=== PATIENT | male | born 1970 | race Caucasian/White ===

== ENCOUNTER → 2016-09-08 | Outpatient (CLI) | payer BC ==
[2016-09-08 10:46] LABS: CH 29.1; CHCM 35.7; HCT 48.6 % (39.0-53.0); HDW 2.83; HGB 16.6 gm/dL (13.0-17.5); MCHC 34.2 g/dL (31.0-37.0); MCV 81.9 fL (80.0-100.0); Mean Platelet Volume 8.1; RBC 5.94 m/uL (4.30-5.90); RDW 12.8 % (11.5-15.5)
[2016-09-08 11:02] LABS: ALT 32 U/L (21-72); AST 23 U/L (17-59); Alkaline Phosphatase 85 U/L (38-126); Anion Gap 11 mmol/L; Blood Urea Nitrogen 11 mg/dL (9-20); Calcium 9.3 mg/dL (8.4-10.2); Carbon Dioxide 29 mmol/L (22-30); Chloride 102 mmol/L (98-107); Cholesterol 170 mg/dL (<200); Glucose 184 mg/dL (74-99); HDL Cholesterol 37 mg/dL (40-60); Non-African American GFR(MDRD) >60 (>60 ml/min/1.73 sqM); Potassium 4.5 mmol/L (3.5-5.1); Sodium 142 mmol/L (137-145); Total Bilirubin 0.9 mg/dL (0.2-1.3); Total Protein 7.5 g/dL (6.3-8.2); Triglycerides 59 mg/dL (<150)
[2016-09-08 11:13] LABS: Hemoglobin A1C 8.2 % (4.2-6.1)
--- NOTE | 2016-09-08 11:13 | XR ---
EXAMINATION TYPE: XR chest 2V DATE OF EXAM: 09/08/2016 11:03 AM HISTORY: Wellness checkup. REFERENCE: Previous study dated 03/30/2014. FINDINGS: There is minimal scarring IMPRESSION: MINIMAL SCARRING, LEFT LUNG BASE.
== END | disposition home or self-care (01) ==
LOC: LABWHC1 10:06
PROVIDERS: ATTEND Internal Medicine
DX: Z00.00 Encounter for general adult medical examination without abnormal findings (principal); E11.9 Type 2 diabetes mellitus without complications; I11.9 Hypertensive heart disease without heart failure; E78.2 Mixed hyperlipidemia; K21.0 Gastro-esophageal reflux disease with esophagitis
CPT/HCPCS: 36415; 71020; 80053; 80061; 82043; 82272; 83036; 84439; 84443; 85027

== ENCOUNTER → 2016-11-16 | Outpatient (CLI) | payer BC ==
[2016-11-16 11:04] LABS: Hemoglobin A1C 8.3 % (4.2-6.1)
== END | disposition home or self-care (01) ==
LOC: LABWHC1 10:10
PROVIDERS: ATTEND Internal Medicine
DX: E11.9 Type 2 diabetes mellitus without complications (principal)
CPT/HCPCS: 36415; 82947; 83036

== ENCOUNTER 2017-06-16 13:07 | Emergency (ER) | payer BC ==
[2017-06-16 13:19] VITALS: TEMP 98.1
[2017-06-16] MEDS ORDERED: SODIUM CHLORIDE 0.9% 1,000 ML IV STA (13:32)
[2017-06-16] MEDS ORDERED: ONDANSETRON 4 MG/2 ML VIAL IVP STA (13:32)
--- NOTE | 2017-06-16 13:49 | ED ---
Abdominal Pain HPI - General Chief Complaint: Abdominal Pain Stated Complaint: Abd Pain Time Seen by Provider: 06/16/17 13:28 Source: patient, RN notes reviewed Mode of arrival: wheelchair Limitations: no limitations - History of Present Illness Initial Comments: 46-year-old male presents emergency Department chief complaint of abdominal discomfort, nausea vomiting. Patient states that symptoms started yesterday states she just generalized not feeling well had some body aches. Patient states he's been vomiting all night to today. Patient denies any contacts with some symptoms. Patient does admit to some loose stools and diarrhea. Patient denies any melena or hematochezia. Denies fever, chills, headache or dizziness. He states he did feel lightheaded earlier with the vomiting states that has resolved. Patient denies any prior abdominal surgeries. Patient states he is diabetic and takes metformin and glipizide. - Related Data Home Medications Medication Instructions Recorded Confirmed metFORMIN HCL [Glucophage] 500 mg PO BID 03/31/14 06/16/17 glipiZIDE [Glucotrol] 5 mg PO AC-BRKFST 06/16/17 06/16/17 Previous Rx's Medication Instructions Recorded Dicyclomine [Bentyl] 20 mg PO TID #30 tablet 06/16/17 Ondansetron Odt [Zofran Odt] 4 mg PO Q8HR PRN #10 tab 06/16/17 Allergies Allergy/AdvReac Type Severity Reaction Status Date / Time No Known Allergies Allergy Verified 06/16/17 13:51 Review of Systems ROS Statement: Those systems with pertinent positive or pertinent negative responses have been documented in the HPI. ROS Other: All systems not noted in ROS Statement are negative. Past Medical History Past Medical History: Diabetes Mellitus History of Any Multi-Drug Resistant Organisms: None Reported Past Surgical History: Orthopedic Surgery Additional Past Surgical History / Comment(s): BILATERAL KNEE, LEFT ROTATOR CUFF , RIGHT ARM Past Anesthesia/Blood Transfusion Reactions: No Reported Reaction Past Psychological History: Depression Smoking Status: Never smoker Past Alcohol Use History: None Reported Past Drug Use History: None Reported - Past Family History Father Family Medical History: Deep Vein Thrombosis (DVT) General Exam Limitations: no limitations General appearance: alert, in no apparent distress Head exam: Present: atraumatic, normocephalic, normal inspection Eye exam: Present: normal appearance, PERRL, EOMI. Absent: scleral icterus, conjunctival injection, periorbital swelling ENT exam: Present: normal exam, mucous membranes moist, TM's normal bilaterally , normal external ear exam. Absent: normal oropharynx (No upper dentition) Neck exam: Present: normal inspection, full ROM. Absent: tenderness, meningismus, lymphadenopathy Respiratory exam: Present: normal lung sounds bilaterally. Absent: respiratory distress, wheezes, rales, rhonchi, stridor Cardiovascular Exam: Present: normal rhythm, tachycardia, normal heart sounds. Absent: systolic murmur, diastolic murmur, rubs, gallop, clicks GI/Abdominal exam: Present: soft, tenderness (Mild Diffuse upper), normal bowel sounds. Absent: distended, guarding, rebound, rigid Back exam: Absent: CVA tenderness (R), CVA tenderness (L) Skin exam: Present: warm, dry, intact, normal color. Absent: rash Course Vital Signs 06/16/17 13:17 Temperature 98.1 F Pulse Rate 116 H Respiratory 20 Rate Blood Pressure 144/80 O2 Sat by Pulse 98 Oximetry Medical Decision Making - Medical Decision Making 46-year-old male male presents emergency Department chief complaint of nausea vomiting don't discomfort. Patient does feel improved after Zofran antiemetics she does have some mild residual pain. Patient given Toradol. 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 Return parameters were discussed. - Lab Data Result diagrams: 06/16/17 14:04 06/16/17 14:04 Lab Results 06/16/17 06/16/17 06/16/17 Range/Units 14:04 14:04 14:04 WBC 9.5 (3.8-10.6) k/uL RBC 6.37 H (4.30-5.90) m/uL Hgb 17.4 (13.0-17.5) gm/dL Hct 51.5 (39.0-53.0) % MCV 80.8 (80.0-100.0) fL MCH 27.3 (25.0-35.0) pg MCHC 33.8 (31.0-37.0) g/dL RDW 14.5 (11.5-15.5) % Plt Count 217 (150-450) k/uL Neutrophils % 89 % Lymphocytes % 6 % Monocytes % 3 % Eosinophils % 1 % Basophils % 0 % Neutrophils # 8.5 H (1.3-7.7) k/uL Lymphocytes # 0.5 L (1.0-4.8) k/uL Monocytes # 0.3 (0-1.0) k/uL Eosinophils # 0.1 (0-0.7) k/uL Basophils # 0.0 (0-0.2) k/uL Sodium 137 (137-145) mmol/L Potassium 4.3 (3.5-5.1) mmol/L Chloride 102 (98-107) mmol/L Carbon Dioxide 26 (22-30) mmol/L Anion Gap 9 mmol/L BUN 13 (9-20) mg/dL Creatinine 0.89 (0.66-1.25) mg/dL Est GFR (MDRD) Af Amer >60 (>60 ml/min/1.73 sqM) Est GFR (MDRD) Non-Af >60 (>60 ml/min/1.73 sqM) Glucose 234 H (74-99) mg/dL Plasma Lactic Acid [place] 1.1 (0.7-2.0) mmol/L Calcium 9.0 (8.4-10.2) mg/dL Total Bilirubin 0.8 (0.2-1.3) mg/dL AST 23 (17-59) U/L ALT 42 (21-72) U/L Alkaline Phosphatase 82 (38-126) U/L Total Protein 7.3 (6.3-8.2) g/dL Albumin 4.1 (3.5-5.0) g/dL Amylase 59 (30-110) U/L Lipase 186 (23-300) U/L Urine Color Urine Appearance (Clear) Urine pH (5.0-8.0) Ur Specific [place] (1.001-1.035) Urine Protein (Negative) Urine Glucose (UA) (Negative) Urine Ketones (Negative) Urine Blood (Negative) Urine Nitrite (Negative) Urine Bilirubin (Negative) Urine Urobilinogen (<2.0) mg/dL Ur Leukocyte Esterase (Negative) Acetone, Qual Negative (Negative) 06/16/17 Range/Units 14:04 WBC (3.8-10.6) k/uL RBC (4.30-5.90) m/uL Hgb (13.0-17.5) gm/dL Hct (39.0-53.0) % MCV (80.0-100.0) fL MCH (25.0-35.0) pg MCHC (31.0-37.0) g/dL RDW (11.5-15.5) % Plt Count (150-450) k/uL Neutrophils % % Lymphocytes % % Monocytes % % Eosinophils % % Basophils % % Neutrophils # (1.3-7.7) k/uL Lymphocytes # (1.0-4.8) k/uL Monocytes # (0-1.0) k/uL Eosinophils # (0-0.7) k/uL Basophils # (0-0.2) k/uL Sodium (137-145) mmol/L Potassium (3.5-5.1) mmol/L Chloride (98-107) mmol/L Carbon Dioxide (22-30) mmol/L Anion Gap mmol/L BUN (9-20) mg/dL Creatinine (0.66-1.25) mg/dL Est GFR (MDRD) Af Amer (>60 ml/min/1.73 sqM) Est GFR (MDRD) Non-Af (>60 ml/min/1.73 sqM) Glucose (74-99) mg/dL Plasma Lactic Acid [place] (0.7-2.0) mmol/L Calcium (8.4-10.2) mg/dL Total Bilirubin (0.2-1.3) mg/dL AST (17-59) U/L ALT (21-72) U/L Alkaline Phosphatase (38-126) U/L Total Protein (6.3-8.2) g/dL Albumin (3.5-5.0) g/dL Amylase (30-110) U/L Lipase (23-300) U/L Urine Color Yellow Urine Appearance Clear (Clear) Urine pH 7.5 (5.0-8.0) Ur Specific [place] 1.027 (1.001-1.035) Urine Protein Trace H (Negative) Urine Glucose (UA) 4+ H (Negative) Urine Ketones 2+ H (Negative) Urine Blood Negative (Negative) Urine Nitrite Negative (Negative) Urine Bilirubin Negative (Negative) Urine Urobilinogen 3.0 (<2.0) mg/dL Ur Leukocyte Esterase Negative (Negative) Acetone, Qual (Negative) Disposition Clinical Impression: Gastroenteritis Disposition: HOME SELF-CARE Condition: Stable Instructions: Gastroenteritis (ED) Additional Instructions: Please return to the Emergency Department if symptoms worsen or any other concerns. Prescriptions: Dicyclomine [Bentyl] 20 mg PO TID #30 tablet Ondansetron Odt [Zofran Odt] 4 mg PO Q8HR PRN #10 tab PRN Reason: Nausea Referrals: Henry Quijano MD [Primary Care Provider] - 1-2 days Time of Disposition: 15:27
[2017-06-16 14:18] LABS: Appearance,Urine Clear (Clear); Bilirubin,Urine Negative (Negative); Glucose,Urine (UA) 4+ (Negative); Leukocyte Esterase,Urine Negative (Negative); Nitrite,Urine Negative (Negative); PH, Urine 7.5 (5.0-8.0); Protein,Urine Trace (Negative); Specific Gravity,Urine 1.027 (1.001-1.035); UA Billing (MACRO vs. MICRO) CHEM
--- NOTE | 2017-06-16 14:18 | XR ---
EXAMINATION TYPE: XR KUB DATE OF EXAM: 06/16/2017 2:15 PM CLINICAL HISTORY: Left-sided abdominal pain for a few days. TECHNIQUE: Two Upright KUB images of the abdomen are obtained. COMPARISON: None. FINDINGS: There is some paucity of bowel gas. Visualized gas is noted in nondistended small and large bowel loops. A few scattered air-fluid levels are noted in right-sided colonic loops as well as in r ight mid small bowel loops. No pneumoperitoneum or suspicious calcification is seen. Lung bases are c lear. Visualized osseous structures are intact. IMPRESSION: Overall nonspecific bowel gas pattern.
[2017-06-16 14:19] LABS: Basophils % (A) 0 %; CH 27.8; CHCM 34.6; Eosinophils # (A) 0.1 k/uL (0-0.7); Eosinophils % (A) 1 %; HCT 51.5 % (39.0-53.0); HGB 17.4 gm/dL (13.0-17.5); Luc # (Auto) 0.05; Luc % (Auto) 1; Lymphocytes # (A) 0.5 k/uL (1.0-4.8); Lymphocytes % (A) 6 %; MCH 27.3 pg (25.0-35.0); MCHC 33.8 g/dL (31.0-37.0); MCV 80.8 fL (80.0-100.0); Mean Platelet Volume 8.1; Monocytes # (A) 0.3 k/uL (0-1.0); Monocytes % (A) 3 %; Neutrophils # (A) 8.5 k/uL (1.3-7.7); Neutrophils % (A) 89 %; RBC 6.37 m/uL (4.30-5.90); RDW 14.5 % (11.5-15.5); WBC 9.5 k/uL (3.8-10.6); WBC (Perox) 9.99
[2017-06-16 14:35] LABS: Ketones,Urine 2+ (Negative)
[2017-06-16 14:40] LABS: ALT 42 U/L (21-72); AST 23 U/L (17-59); Alkaline Phosphatase 82 U/L (38-126); Amylase 59 U/L (30-110); Anion Gap 9 mmol/L; Blood Urea Nitrogen 13 mg/dL (9-20); Carbon Dioxide 26 mmol/L (22-30); Chloride 102 mmol/L (98-107); Glucose 234 mg/dL (74-99); Non-African American GFR(MDRD) >60 (>60 ml/min/1.73 sqM); Potassium 4.3 mmol/L (3.5-5.1); Sodium 137 mmol/L (137-145); Total Bilirubin 0.8 mg/dL (0.2-1.3); Total Protein 7.3 g/dL (6.3-8.2)
[2017-06-16] MEDS ORDERED: KETOROLAC 30 MG/ML 1 ML VIAL IVP STA (15:26)
[2017-06-16 15:53] VITALS: BP 129/78; PULSE 105; RESP 16
== END 2017-06-16 15:53 | disposition home or self-care (01) ==
LOC: EC 13:07
DX: K52.9 Noninfective gastroenteritis and colitis, unspecified (principal); E11.9 Type 2 diabetes mellitus without complications; Z79.84 Long term (current) use of oral hypoglycemic drugs
CPT/HCPCS: 36415; 80053; 82150; 82009; 83605; 83690; 85025; 81003; 74000; 99284; 96374; 96375; 96361; J2405; J1885

== ENCOUNTER 2018-02-17 21:35 | Emergency (ER) | payer BC ==
[2018-02-17 22:15] VITALS: BP 155/92; PULSE 88; RESP 18; TEMP 97.8
--- NOTE | 2018-02-17 22:58 | ED ---
Wound/Laceration HPI - General Chief Complaint: Wound/Laceration Stated Complaint: Head Injury Lac Time Seen by Provider: 02/17/18 22:28 Source: patient, RN notes reviewed Mode of arrival: ambulatory Limitations: no limitations - History of Present Illness Initial Comments: This is a 47-year-old male who presents to the emergency department with chief complaint of head laceration. Patient states that at 9:30 this evening he was walking down down to his basement. He states that the basement ceiling is low hanging. He states that he turned around and hit the left side of his head on the ceiling. Denies loss of consciousness, nausea or vomiting, dizziness. Does report a mild headache. Patient states he is up-to-date with his tetanus vaccination. Denies any other injuries or trauma. Denies fevers or chills, chest pain or shortness breath, abdominal pain, weakness, numbness or tingling. - Related Data Home Medications Medication Instructions Recorded Confirmed metFORMIN HCL [Glucophage] 500 mg PO BID 03/31/14 06/16/17 glipiZIDE [Glucotrol] 5 mg PO AC-BRKFST 06/16/17 06/16/17 Previous Rx's Medication Instructions Recorded Dicyclomine [Bentyl] 20 mg PO TID #30 tablet 06/16/17 Ondansetron Odt [Zofran Odt] 4 mg PO Q8HR PRN #10 tab 06/16/17 Allergies Allergy/AdvReac Type Severity Reaction Status Date / Time No Known Allergies Allergy Verified 02/17/18 22:15 Review of Systems ROS Statement: Those systems with pertinent positive or pertinent negative responses have been documented in the HPI. ROS Other: All systems not noted in ROS Statement are negative. Past Medical History Past Medical History: Diabetes Mellitus History of Any Multi-Drug Resistant Organisms: None Reported Past Surgical History: Orthopedic Surgery Additional Past Surgical History / Comment(s): BILATERAL KNEE, LEFT ROTATOR CUFF , RIGHT ARM Past Anesthesia/Blood Transfusion Reactions: No Reported Reaction Past Psychological History: Depression Smoking Status: Never smoker Past Alcohol Use History: None Reported Past Drug Use History: None Reported - Past Family History Father Family Medical History: Deep Vein Thrombosis (DVT) General Exam - General Exam Comments Initial Comments: General: Awake and alert, well-developed; in no apparent distress. HEENT: Approximately 2 cm in length skin avulsion to the left parietal scalp. Bleeding is controlled. Pupils are equal, round and reactive to light. Extraocular movements intact. Oropharynx moist without erythema or exudate. Neck: Supple. Normal ROM. Cardiovascular: Regular rate and rhythm. No murmurs, rubs or gallops. Chest symmetrical. Respiratory: Lungs clear to auscultation bilaterally. No wheezes, rales or rhonchi. Normal respiratory effort with no use of accessory muscles. Musculoskeletal: Normal ROM, no tenderness bilateral upper and lower extremities. Ambulating normally. Skin: [place], warm and dry without rashes or lesions. Neurological: Alert and oriented x3. CN II-XII grossly intact. Speech is fluent and answers are appropriate. No focal neuro deficits. Psychiatric: Normal mood and affect. No overt signs of depression or anxiety noted. Limitations: no limitations Course Vital Signs 02/17/18 22:12 Temperature 97.8 F Pulse Rate 88 Respiratory 18 Rate Blood Pressure 155/92 O2 Sat by Pulse 98 Oximetry Medical Decision Making - Medical Decision Making This is a 47-year-old male who presents to the emergency department with chief complaint of head laceration. Patient reports hitting the left side of his head on his low hanging basement ceiling approximately one hour ago. Denies loss of consciousness, nausea or vomiting, dizziness. Does report a mild headache. Wound was cleansed and examined thoroughly. He did sustain an approximately 2 cm in length skin avulsion to the left superior parietal scalp. Unable to approximate the edges. Bleeding is controlled. Case was discussed with attending physician, Dr. Sorto who also evaluated the patient. Recommended bacitracin. I have discussed computed tomography scan of the head with patient and at bedside. At this time based on history and physical exam findings, it is not recommended. Return parameters however were discussed in detail. Patient is in agreement to return to emergency department if any concerning symptoms arise. Vital signs are stable and patient is in no acute distress. Bacitracin is applied. Patient will be discharged home at this time. He is in agreement and voices understanding. All questions answered. Disposition Clinical Impression: Scalp avulsion, Closed head injury Disposition: HOME SELF-CARE Condition: Good Instructions: Skin Avulsion (ED), Head Injury (ED) Additional Instructions: Please apply bacitracin to the wound at least 3 times per day. Please follow up with primary care provider within 1-2 days. Return to emergency department if symptoms should worsen or any concerns arise. Is patient prescribed a controlled substance at d/c from ED?: No Referrals: None,Stated [Primary Care Provider] - 1-2 days Time of Disposition: 23:01
== END 2018-02-17 23:07 | disposition home or self-care (01) ==
LOC: EC 21:35
DX: S08.0XXA Avulsion of scalp, initial encounter (principal); E11.9 Type 2 diabetes mellitus without complications; Z98.890 Other specified postprocedural states; Z79.84 Long term (current) use of oral hypoglycemic drugs; W22.8XXA Striking against or struck by other objects, initial encounter; Y92.008 Other place in unspecified non-institutional (private) residence as the place of occurrence of the external cause; Y93.01 Activity, walking, marching and hiking
CPT/HCPCS: 99282

== ENCOUNTER 2018-10-25 17:27 | Emergency (ER) | payer BC ==
[2018-10-25 17:56] VITALS: RESP 18
[2018-10-25] MEDS ORDERED: IPRATROPIUM-ALBUTEROL 3 ML NEB INHALATION STA ×2 (18:21→20:02)
[2018-10-25] MEDS ORDERED: SODIUM CHLORIDE 0.9% 1,000 ML IV STA (18:22)
[2018-10-25] MEDS ORDERED: IBUPROFEN 600 MG TAB PO STA (18:22)
[2018-10-25] MEDS ORDERED: methylPREDNISolone SOD SUCCI 125 MG/2 ML VIAL IV STA (18:22)
[2018-10-25] MEDS ORDERED: ACETAMINOPHEN TAB 500 MG TAB PO STA (18:22)
--- NOTE | 2018-10-25 18:25 | ED ---
General Adult HPI - General Chief complaint: Fever Stated complaint: cough, congestion Time Seen by Provider: 10/25/18 18:17 Source: patient, RN notes reviewed Mode of arrival: ambulatory Limitations: no limitations - History of Present Illness Initial comments: Patient is a pleasant 47-year-old male presenting to the emergency Department with cough. Symptoms were present for close to 2 weeks now. Patient has had persistent coughing with occasional yellow sputum. Patient states sometimes it does hurt to cough. Otherwise no chest discomfort. Patient has had some rhinorrhea and sore throat. Patient has had fever and fatigue and myalgias. No history of chronic lung disease. Patient is a nonsmoker. - Related Data Home Medications Medication Instructions Recorded Confirmed Lisinopril [Zestril] 20 mg PO DAILY 10/25/18 10/25/18 metFORMIN HCL 1,000 mg PO BID 10/25/18 10/25/18 Previous Rx's Medication Instructions Recorded Albuterol Inhaler [Ventolin Hfa 2 puff INHALATION Q4HR PRN #1 10/25/18 Inhaler] inhaler predniSONE 20 mg PO BID #6 tab 10/25/18 Allergies Allergy/AdvReac Type Severity Reaction Status Date / Time No Known Allergies Allergy Verified 10/25/18 18:23 Review of Systems ROS Statement: Those systems with pertinent positive or pertinent negative responses have been documented in the HPI. ROS Other: All systems not noted in ROS Statement are negative. Constitutional: Denies: fever Eyes: Denies: eye pain ENT: Denies: ear pain Respiratory: Reports: as per HPI, cough Cardiovascular: Denies: chest pain Endocrine: Reports: fatigue Gastrointestinal: Denies: abdominal pain Genitourinary: Denies: dysuria Musculoskeletal: Denies: back pain Skin: Denies: rash Neurological: Denies: weakness Past Medical History Past Medical History: Diabetes Mellitus History of Any Multi-Drug Resistant Organisms: None Reported Past Surgical History: Orthopedic Surgery Additional Past Surgical History / Comment(s): BILATERAL KNEE, LEFT ROTATOR CUFF, RIGHT ARM Past Anesthesia/Blood Transfusion Reactions: No Reported Reaction Past Psychological History: Depression Smoking Status: Never smoker Past Alcohol Use History: None Reported Past Drug Use History: None Reported - Past Family History Father Family Medical History: Deep Vein Thrombosis (DVT) General Exam Limitations: no limitations General appearance: alert, in no apparent distress Head exam: Present: atraumatic Eye exam: Present: normal appearance, PERRL ENT exam: Present: normal oropharynx Neck exam: Present: normal inspection. Absent: tenderness, meningismus Respiratory exam: Present: wheezes, rhonchi Cardiovascular Exam: Present: regular rate, normal rhythm GI/Abdominal exam: Present: soft. Absent: tenderness Extremities exam: Present: normal inspection. Absent: pedal edema, calf tenderness Neurological exam: Present: alert Psychiatric exam: Present: normal affect, normal mood Skin exam: Present: normal color Course Vital Signs 10/25/18 10/25/18 10/25/18 17:53 18:27 18:38 Temperature 102.9 F H Pulse Rate 95 94 90 Respiratory 18 Rate Blood Pressure 125/67 O2 Sat by Pulse 100 Oximetry EKG Findings - EKG Comments: EKG Findings:: Normal sinus rhythm 91. MA 168. QRS 86. QT 314. QTC 36. Left axis. Normal QRS. No acute ST change Medical Decision Making - Medical Decision Making Patient reevaluated and is starting to feel somewhat better already. Lung sounds still with some mild wheezing and rhonchi however significantly improved. Patient is receptive to a second nebulization treatment. Onset of symptoms is. 48 hours therefore patient is not a candidate for Tamiflu. Patient and family updated on results and need for follow-up as well as need to return for worsening symptoms or dyspnea. - Lab Data Result diagrams: 10/25/18 18:49 10/25/18 18:49 Lab Results 10/25/18 10/25/18 10/25/18 Range/Units 18:49 18:49 19:07 WBC 5.8 (3.8-10.6) k/uL RBC 5.53 (4.30-5.90) m/uL Hgb 14.9 (13.0-17.5) gm/dL Hct 45.1 (39.0-53.0) % MCV 81.5 (80.0-100.0) fL MCH 27.0 (25.0-35.0) pg MCHC 33.1 (31.0-37.0) g/dL RDW 12.7 (11.5-15.5) % Plt Count 178 (150-450) k/uL Neutrophils % 69 % Lymphocytes % 20 % Monocytes % 7 % Eosinophils % 1 % Basophils % 0 % Neutrophils # 4.0 (1.3-7.7) k/uL Lymphocytes # 1.1 (1.0-4.8) k/uL Monocytes # 0.4 (0-1.0) k/uL Eosinophils # 0.1 (0-0.7) k/uL Basophils # 0.0 (0-0.2) k/uL Sodium 133 L (137-145) mmol/L Potassium 4.6 (3.5-5.1) mmol/L Chloride 97 L (98-107) mmol/L Carbon Dioxide 25 (22-30) mmol/L Anion Gap 11 mmol/L BUN 13 (9-20) mg/dL Creatinine 0.78 (0.66-1.25) mg/dL Est GFR (CKD-EPI)AfAm >90 (>60 ml/min/1.73 sqM) Est GFR (CKD-EPI)NonAf >90 (>60 ml/min/1.73 sqM) Glucose 125 H (74-99) mg/dL Calcium 8.6 (8.4-10.2) mg/dL Total Bilirubin 0.5 (0.2-1.3) mg/dL AST 58 (17-59) U/L ALT 75 H (21-72) U/L Alkaline Phosphatase 74 (38-126) U/L Total Protein 6.7 (6.3-8.2) g/dL Albumin 3.8 (3.5-5.0) g/dL Influenza Type A RNA Detected H (Not Detectd) Influenza Type B (PCR) Not Detected (Not Detectd) - Radiology Data Radiology results: image reviewed (Chest x-ray shows no acute process) Disposition Clinical Impression: Influenza, Bronchospasm Disposition: HOME SELF-CARE Condition: Stable Instructions (If sedation given, give patient instructions): Fever in Adults (ED), Influenza (ED) Additional Instructions: Please follow-up with primary care physician in the next couple days for recheck. Return for difficulty breathing, uncontrolled fevers, worsening symptoms or other concerns. Prescriptions: predniSONE 20 mg PO BID #6 tab Albuterol Inhaler [Ventolin Hfa Inhaler] 2 puff INHALATION Q4HR PRN #1 inhaler PRN Reason: Dyspnea Is patient prescribed a controlled substance at d/c from ED?: No Referrals: Jeremiah Hernandez MD [Primary Care Provider] - 1-2 days Time of Disposition: 20:05
--- NOTE | 2018-10-25 19:43 | XR ---
EXAMINATION TYPE: XR chest 2V DATE OF EXAM: 10/25/2018 COMPARISON: 09/08/2016 HISTORY: Chest pain TECHNIQUE: Frontal and lateral views of the chest are obtained. FINDINGS: Heart and mediastinum are normal. Lungs are clear. Diaphragm is normal. Bony thorax is int act. Pulmonary vascularity is normal. IMPRESSION: Normal chest. No change.
[2018-10-25 19:49] LABS: Basophils % (A) 0 %; Eosinophils # (A) 0.1 k/uL (0-0.7); Eosinophils % (A) 1 %; HCT 45.1 % (39.0-53.0); HGB 14.9 gm/dL (13.0-17.5); Lymphocytes # (A) 1.1 k/uL (1.0-4.8); Lymphocytes % (A) 20 %; MCHC 33.1 g/dL (31.0-37.0); MCV 81.5 fL (80.0-100.0); Mean Platelet Volume 7.3; Monocytes # (A) 0.4 k/uL (0-1.0); Monocytes % (A) 7 %; Neutrophils % (A) 69 %; Platelet Count 178 k/uL (150-450); RBC 5.53 m/uL (4.30-5.90); RDW 12.7 % (11.5-15.5); WBC 5.8 k/uL (3.8-10.6)
[2018-10-25 19:55] LABS: ALT 75 U/L (21-72); AST 58 U/L (17-59); Albumin 3.8 g/dL (3.5-5.0); Alkaline Phosphatase 74 U/L (38-126); Anion Gap 11 mmol/L; Blood Urea Nitrogen 13 mg/dL (9-20); Calcium 8.6 mg/dL (8.4-10.2); Carbon Dioxide 25 mmol/L (22-30); Chloride 97 mmol/L (98-107); Glucose 125 mg/dL (74-99); Potassium 4.6 mmol/L (3.5-5.1); Sodium 133 mmol/L (137-145); Total Bilirubin 0.5 mg/dL (0.2-1.3); Total Protein 6.7 g/dL (6.3-8.2)
[2018-10-25 20:50] VITALS: BP 124/87; PULSE 87; TEMP 100.4
== END 2018-10-25 20:49 | disposition home or self-care (01) ==
LOC: EC 17:27
DX: J10.1 Influenza due to other identified influenza virus with other respiratory manifestations (principal); J98.01 Acute bronchospasm; E11.9 Type 2 diabetes mellitus without complications; Z79.84 Long term (current) use of oral hypoglycemic drugs; Z79.899 Other long term (current) drug therapy
CPT/HCPCS: 36415; 94640 ×2; 93005; 80053; 85025; 87040; 87502; 71046; 99284; 96374; 96361; J2930

== ENCOUNTER 2019-09-21 15:47 | Emergency (ER) | payer BC ==
[2019-09-21 15:55] VITALS: BP 146/90; PULSE 82; RESP 20; TEMP 97.7
--- NOTE | 2019-09-21 16:40 | XR ---
EXAMINATION TYPE: XR knee complete RT DATE OF EXAM: 09/21/2019 COMPARISON: NONE HISTORY: Knee pain TECHNIQUE: 3 views FINDINGS: There is small knee joint effusion. There is mild spurring on the patella. There is minor s purring of the femoral and tibial condyles. IMPRESSION: Mild osteoarthritis. Small joint effusion. No fracture seen.
[2019-09-21] MEDS ORDERED: HYDROcodone/APAP 7.5-325MG 1 EACH TAB PO ONE (16:53)
--- NOTE | 2019-09-21 16:55 | ED ---
Lower Extremity Injury HPI - General Chief Complaint: Extremity Injury, Lower Stated Complaint: knee pain Time Seen by Provider: 09/21/19 16:00 Source: patient Mode of arrival: ambulatory Limitations: no limitations - History of Present Illness Initial Comments: 48-year-old male presenting today for chief complaint of right knee pain he states has been chronic for well over 2 months he states that he has had evaluation by orthopedics but does not have the money for the deductible in order to have a knee replacement. Patient states he was told he has no meniscus on the right knee. Patient states there is no changes in the pain type, has been the same for years, increasing for 2 months in severity with movement. Patient denies redness, admits to chronic mild swelling > 6 months. Denies weakness, coolness or pallor to the extremity. Denies fever, general malaise. Patient appears well ambulatory on arrival. - Related Data Home Medications Medication Instructions Recorded Confirmed Lisinopril [Zestril] 20 mg PO DAILY 10/25/18 10/25/18 metFORMIN HCL 1,000 mg PO BID 10/25/18 10/25/18 Previous Rx's Medication Instructions Recorded Albuterol Inhaler [Ventolin Hfa 2 puff INHALATION Q4HR PRN #1 10/25/18 Inhaler] inhaler predniSONE [Deltasone] 20 mg PO BID #6 tab 10/25/18 Allergies Allergy/AdvReac Type Severity Reaction Status Date / Time No Known Allergies Allergy Verified 09/21/19 15:55 Review of Systems ROS Statement: Those systems with pertinent positive or pertinent negative responses have been documented in the HPI. ROS Other: All systems not noted in ROS Statement are negative. Past Medical History Past Medical History: Diabetes Mellitus History of Any Multi-Drug Resistant Organisms: None Reported Past Surgical History: Orthopedic Surgery Additional Past Surgical History / Comment(s): BILATERAL KNEE, LEFT ROTATOR CUFF, RIGHT ARM Past Anesthesia/Blood Transfusion Reactions: No Reported Reaction Past Psychological History: Depression Smoking Status: Never smoker Past Alcohol Use History: None Reported Past Drug Use History: None Reported - Past Family History Father Family Medical History: Deep Vein Thrombosis (DVT) General Exam - General Exam Comments Initial Comments: General: The patient is awake and alert, in no distress, and does not appear acutely ill. Eye: Pupils are equal, round and reactive to light, extra-ocular movements are intact. No nystagmus. There is normal conjunctiva bilaterally. No signs of icterus. Cardiovascular: There is a regular rate and rhythm. No murmur, rub or gallop is appreciated. Respiratory: Lungs are clear to auscultation, respirations are non-labored, breath sounds are equal. No wheezes, stridor, rales, or rhonchi. Musculoskeletal: Upon inspection of the knees bilaterally. No erythema of the right knee in comparison the left. There is very mild soft tissue swelling of the right knee. Patient is able to range fully at the knees bilaterally however complains of discomfort and there is noted crepitus of the right knee. Patient strength is intact sensation intact proximal distal to the injury site. Patient has +2 dorsalis pedis pulses equal comparison bilaterally. There is no tenderness to palpation of the calf. Quadriceps tendon appears intact patient is able to extend both difficulty. There is no evidence of trauma such as abrasions or lacerations. Neurological: A&O x 3. CN II-XII intact grossly, There are no obvious motor or sensory deficits. Coordination appears grossly intact. Speech is normal. Skin: Skin is warm and dry and no rashes or lesions are noted. Psychiatric: Cooperative, appropriate mood & affect, normal judgment. Limitations: no limitations Course Vital Signs 09/21/19 09/21/19 15:53 17:18 Temperature 97.7 F 97.7 F Pulse Rate 82 82 Respiratory 20 20 Rate Blood Pressure 146/90 146/90 O2 Sat by Pulse 100 100 Oximetry Medical Decision Making - Medical Decision Making 48-year-old male presenting today for chief complaint of right knee pain ongoing for years increasing for the past 2 months. Patient states he is unable to pay his deductible and orders to have a replacement surgery and needs a new orthopedic referral. Patient denies any redness of the knee any increase in the swelling. Patient is able to range at the knee there is no obvious signs of septic arthritis at this time. Patient afebrile well-appearing nontoxic. The seminal discharge patient with symptomatic treatment discussion and a referral for another orthopedic clinic so patient could have a second opinion. Patient is agreeable to this care plan, he was provided a knee immobilizer to use well and playing otherwise he is to remove it and bend the knee in order to prevent stiffness. Patient discharged appearing well. Disposition Clinical Impression: Chronic pain of right knee, Right knee pain, Osteoarthritis Disposition: HOME SELF-CARE Condition: Good Instructions (If sedation given, give patient instructions): Knee Pain (ED) Additional Instructions: Please use medication as discussed. Please follow-up with family doctor in the next 2 days, recommend orthopedic consultation. Please return to emergency room if the symptoms increase or worsen or for any other concerns. Is patient prescribed a controlled substance at d/c from ED?: No Referrals: Jeremiah Hernandez MD [Primary Care Provider] - 1-2 days Estuardo Saenz DO [Doctor of Osteopathic Medicine] - 1-2 days Time of Disposition: 16:53
== END 2019-09-21 17:18 | disposition home or self-care (01) ==
LOC: EC 15:47
DX: M17.11 Unilateral primary osteoarthritis, right knee (principal); G89.29 Other chronic pain; E11.9 Type 2 diabetes mellitus without complications; Z79.84 Long term (current) use of oral hypoglycemic drugs; Z79.899 Other long term (current) drug therapy
CPT/HCPCS: 73562; 99283; L1830

== ENCOUNTER → 2019-12-19 | Outpatient (CLI) | payer BC | END | disposition home or self-care (01) | LOC: LABWHC1 09:31 | PROVIDERS: ATTEND Orthopaedic Surgery | DX: U07.1 COVID-19 (principal) ==

== ENCOUNTER 2019-12-21 08:03 | Day surgery (SDC) | payer BC ==
[2019-12-20 09:44] VITALS: BMI 34.5
--- NOTE | 2019-12-20 09:55 | HP ---
HISTORY AND PHYSICAL CHIEF COMPLAINT: Right knee pain. 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 He notes swelling, stiffness, and giving way. He was seen recently in the emergency room and had been wearing an immobilizer. PAST MEDICAL HISTORY: Significant for hypertension and type 2 diabetes. PAST SURGICAL HISTORY: Significant for right knee arthroscopy x2 and left knee arthroscopy x3. CURRENT MEDICATIONS: Januvia, metformin, and lisinopril. He denies drug allergies. FAMILY HISTORY: Negative. SOCIAL HISTORY: Negative for current tobacco or alcohol use. 16 POINT REVIEW OF SYSTEMS: Review of systems otherwise reviewed and is noncontributory. PHYSICAL EXAMINATION: On examination, the patient is approximately 6 foot 2, 254 pounds of endomorphic habitus. HEENT: Exam is nonfocal. NECK: Supple. He has painless passive motion of the right hip. Straight leg raise is negative. Active motion right knee -18 to 70 degrees of flexion. He has a moderate effusion. He is tender about the lateral joint line. Collaterals are stable, Kathleen is negative, Moises's elicits lateral pain. His distal neurovascular appears intact in the right lower extremity. MRI report right knee shows evidence of a posterior lateral meniscal tear. IMPRESSION: 1. Right knee, moderate, lateral, greater than medial compartment osteoarthrosis. 2. Internal derangement right knee with symptomatic lateral meniscal tear. 3. Qww-jwbloiu-amtgloglk diabetes. 4. Obesity. RECOMMENDATIONS: I talked to the patient at length regarding his condition and treatment options. At this point, he is having significant pain and mechanical symptoms that limit him. After thorough discussion, he opts to proceed with surgery. We will plan to proceed with right knee arthroscopy with possible partial lateral meniscectomy. We will likely perform that as an outpatient procedure. Risks and benefits were discussed at length in layman's terms. MMODL / IJN: [id number] /
[~2019-12-21 08:03] MED LIST: DEXAMETHASONE SOD PHOSPHATE 10 MG/ML 1 ML VIAL IV ONE; LACTATED RINGERS 1,000 ML IV SCH; MIDAZOLAM 2 MG/2 ML VIAL IV PRN; ONDANSETRON 4 MG/2 ML VIAL IVP ONE; SCOPOLAMINE 1.5MG/72HR PATCH TRANSDERM ONE
[2019-12-21] MEDS ORDERED: LIDOCAINE 1% (10MG/ML) FOR IV START INTRADERMA ONE (08:11)
[2019-12-21 08:32] LABS: Glucose,Whole Blood 220 mg/dL (75-99)
[2019-12-21 08:34] VITALS: TEMP 97.4
[2019-12-21] MEDS ORDERED: LIDOCAINE 1% INJ 10MG/ML (20 ML MDV) ONE (09:01)
[2019-12-21] MEDS ORDERED: MIDAZOLAM 2 MG/2 ML VIAL ONE (09:01)
[2019-12-21] MEDS ORDERED: fentaNYL (PF) 50 MCG/ML 2 ML AMP ONE (09:01)
[2019-12-21] MEDS ORDERED: SUCCINYLCHOLINE CHLORIDE VIAL 200 MG/10 ML VIAL IV ONE (09:01)
[2019-12-21] MEDS ORDERED: PROPOFOL 10 MG/ML 20 ML VIAL IV ONE (09:01)
--- NOTE | 2019-12-21 09:56 | P.OP ---
Date of Procedure: 12/21/19 Preoperative Diagnosis: Right knee internal derangement Postoperative Diagnosis: Right knee posterior lateral meniscal tear/grade 3 chondral injury distal medial portion medial femoral condyle Procedure(s) Performed: Right knee arthroscopic partial lateral meniscectomy/medial femoral chondrectomy/microfracture medial femoral condyle Anesthesia: JEANNEA Surgeon: Luis Angel Alcala Estimated Blood Loss (ml): 10 Pathology: none sent Condition: stable Disposition: PACU Indications for Procedure: The patient's a 49-year-old male presents with progressive right knee pain and mechanical symptoms despite conservative measures. After thorough discussion of the options he opted to proceed with surgery. Operative risks to include infection, neurovascular injury, development of blood clots, possible incomplete resolution of symptoms, possible worsening symptoms and need for subsequent procedures was discussed. Informed consent was obtained. Operative Findings: As below Description of Procedure: The patient was brought to the operating room, and after induction of general anesthesia examined the right knee. Collaterals were stable, Kathleen was negative, and posterior drawer was negative. The right lower extremity was p repped and draped in a normal fashion. A superior lateral portal was made through a 3 mm skin incision superior and lateral to the patella. This was used for outflow. A lateral portal was made through a 5 mm vertical skin incision lateral to the patella tendon above the joint line. Diagnostic arthroscopy was performed. On inspection of the medial compartment, the medial meniscus was stable and intact there was a grade 3 chondral injury involving the distal medial portion the medial femoral condyle. Loose chondral flap was debrided back to stable base with a motorized shaver. Microfracture was performed with a power pick breaching the subchondral surface down to the bone marrow elements.. This was debrided back to stable base with straight baskets and a motorized shaver. On inspection of the notch, the anterior cruciate ligament appeared to be intact. On inspection of the lateral compartment, a complex tear involving the posterior horn of the lateral meniscus was noted in the white-white junction. This was debrided back to stable base with a motorized shaver and straight baskets. Grade 2-3 chondral changes were noted diffusely in the lateral compartment. On inspection of the patellofemoral articulation, there were grade 2 degenerative changes diffusely however no loose chondral fragments. The gutters were clear debris. The knee was then thoroughly irrigated. The portals were closed with Steri-Strips. A sterile dressing was applied in addition to a compression stocking. The patient was awoken from general anesthesia and transferred to recovery room in good condition. Blood loss was estimated at 10 mL. No complications were incurred.
[2019-12-21 10:01] VITALS: RESP 16
[2019-12-21] MEDS: HYDROmorphone 0.5 MG/0.5 ML SYRINGE IVP PRN ×2 (10:11→10:15)
[2019-12-21 10:20] LABS: Glucose,Whole Blood 247 mg/dL (75-99)
[2019-12-21] MEDS ORDERED: INSULIN ASPART (NovoLOG) 100 UNIT/ML VIAL SQ ONE ×3 (10:37→11:50)
[2019-12-21 11:06] LABS: Glucose,Whole Blood 242 mg/dL (75-99)
[2019-12-21] MEDS ORDERED: metFORMIN 500 MG TAB PO STA (11:46)
[2019-12-21 11:54] LABS: Glucose,Whole Blood 283 mg/dL (75-99)
[2019-12-21 11:59] VITALS: BP 105/65; PULSE 75
[2019-12-21 12:22] LABS: Glucose,Whole Blood 249 mg/dL (75-99)
== END 2019-12-21 12:31 | disposition home or self-care (01) ==
LOC: OR 08:03
PROVIDERS: ATTEND Orthopaedic Surgery
DX: M23.251 Derangement of posterior horn of lateral meniscus due to old tear or injury, right knee (principal); I10 Essential (primary) hypertension; M17.11 Unilateral primary osteoarthritis, right knee; E11.9 Type 2 diabetes mellitus without complications; Z79.84 Long term (current) use of oral hypoglycemic drugs; Z79.899 Other long term (current) drug therapy; E66.9 Obesity, unspecified; Z68.33 Body mass index [BMI] 33.0-33.9, adult
CPT/HCPCS: 29881; 29879; J2250; J0330; J0690; J2405; J2001; J3010; J2704; J1170

== ENCOUNTER → 2020-04-09 | Outpatient (CLI) | payer BC ==
--- NOTE | 2020-04-09 11:44 | MR ---
EXAMINATION TYPE: MR knee LT wo con DATE OF EXAM: 04/09/2020 COMPARISON: None HISTORY: Left Knee Pain TECHNIQUE: Multiplanar, multisequence images of the knee is performed without IV contrast. FINDINGS: MEDIAL MENISCUS: Anterior and posterior horns are intact without tear. LATERAL MENISCUS: Anterior and posterior horns are intact without tear. CRUCIATE LIGAMENTS: The anterior and posterior cruciate ligaments are intact and unremarkable. COLLATERAL LIGAMENTS: The medial collateral ligament and lateral collateral ligament complex are inta ct and unremarkable. EXTENSOR MECHANISM: Visualized quadriceps and patellar tendons are intact. EFFUSION: Small suprapatellar joint effusion noted. POPLITEAL CYST: No popliteal/brizuela cyst. TRICOMPARTMENT SPACES: Mild narrowing medial tibiofemoral joint space. CARTILAGE: Intact BONE MARROW SIGNAL: No focal abnormal marrow signal is appreciated. OTHER: No additional significant abnormality is appreciated. IMPRESSION: 1. No evidence for intraluminal debris noted. Joint effusion is noted.
== END | disposition home or self-care (01) ==
LOC: RADMRIMAIN 10:54
PROVIDERS: ATTEND Orthopaedic Surgery
DX: M25.462 Effusion, left knee (principal)

== ENCOUNTER 2021-10-08 15:12 | Inpatient (IN) | payer BC ==
[2021-10-08 15:23] LABS: Glucose,Whole Blood 154 mg/dL (75-99)
[2021-10-08 16:29] LABS: Appearance,Urine Clear (Clear); Bilirubin,Urine Negative (Negative); Blood,Urine Negative (Negative); Color,Urine Light Yellow; Glucose,Urine (UA) Negative (Negative); Ketones,Urine Negative (Negative); Leukocyte Esterase,Urine Negative (Negative); Nitrite,Urine Negative (Negative); Protein,Urine Negative (Negative); Specific Gravity,Urine 1.009 (1.001-1.035); Urobilinogen,Urine <2.0 mg/dL (<2.0)
[2021-10-08 16:33] LABS: Basophils # (A) 0.1 k/uL (0-0.2); Basophils % (A) 1 %; Eosinophils # (A) 0.3 k/uL (0-0.7); Eosinophils % (A) 3 %; HGB 16.4 gm/dL (13.0-17.5); Lymphocytes # (A) 2.1 k/uL (1.0-4.8); Lymphocytes % (A) 27 %; MCH 28.6 pg (25.0-35.0); MCHC 34.8 g/dL (31.0-37.0); MCV 82.4 fL (80.0-100.0); Monocytes # (A) 0.4 k/uL (0-1.0); Monocytes % (A) 6 %; Neutrophils # (A) 4.8 k/uL (1.3-7.7); Neutrophils % (A) 61 %; Platelet Count 242 k/uL (150-450); RBC 5.71 m/uL (4.30-5.90); RDW 13.1 % (11.5-15.5); WBC 7.8 k/uL (3.8-10.6)
--- NOTE | 2021-10-08 16:33 | XR ---
EXAMINATION TYPE: XR chest 2V DATE OF EXAM: 10/08/2021 COMPARISON: Chest x-ray October 25, 2018 HISTORY: Altered mental status and weakness. TECHNIQUE: Frontal and lateral views of the chest are obtained. FINDINGS: Low lung volumes redemonstrated. There is no suspicious focal air space opacity, pleural ef fusion, or pneumothorax seen. The cardiac silhouette size remain within normal limits. The osseous structures are intact. Overlying EKG leads on current study. IMPRESSION: No acute process.
[2021-10-08 16:38] LABS: ALT 28 U/L (4-49); AST 25 U/L (17-59); African American GFR (CKD) >90 (>60 ml/min/1.73 sqM); Albumin 4.1 g/dL (3.5-5.0); Alkaline Phosphatase 74 U/L (38-126); Anion Gap 7 mmol/L; Blood Urea Nitrogen 15 mg/dL (9-20); Calcium 9.3 mg/dL (8.4-10.2); Carbon Dioxide 23 mmol/L (22-30); Chloride 106 mmol/L (98-107); Glucose 142 mg/dL (74-99); Non-African American GFR(CKD) >90 (>60 ml/min/1.73 sqM); Potassium 4.2 mmol/L (3.5-5.1); Sodium 136 mmol/L (137-145); Total Bilirubin 0.4 mg/dL (0.2-1.3); Total Protein 7.2 g/dL (6.3-8.2)
--- NOTE | 2021-10-08 16:38 | CT ---
EXAMINATION TYPE: CT brain wo con DATE OF EXAM: 10/08/2021 COMPARISON: CT dated 03/30/2014 HISTORY: weakness X [address] DLP: 1190.4 mGycm Automated exposure control for dose reduction was used. TECHNIQUE: CT scan of the brain is performed without IV contrast administration. FINDINGS: No acute intracranial hemorrhage. No gross acute cortical infarct. No midline shift, herniation or ve ntriculomegaly. Unremarkable perez-white matter differentiation, basal cisterns, sella and CP angles. No gross space-o ccupying lesion, vasogenic edema or mass effect. Unremarkable orbits. Clear visualized paranasal sinuses. Minimal opacification of the inferior mastoi d air cells. No aggressive bone lesion. IMPRESSION: No acute intracranial abnormality or gross space-occupying lesion by this nonenhanced CT scan.
[2021-10-08 16:39] LABS: INR 0.9 (<1.2); Partial Thromboplastin Time 22.9 sec (22.0-30.0); Prothrombin Time 10.4 sec (9.0-12.0)
[2021-10-08 16:40] LABS: Glucose,Whole Blood 126 mg/dL (75-99)
--- NOTE | 2021-10-08 17:09 | ED ---
General Adult HPI - General Chief complaint: Weakness Stated complaint: Poss stroke Time Seen by Provider: 10/08/21 15:49 Source: patient Mode of arrival: wheelchair Limitations: no limitations - History of Present Illness Initial comments: Patient is a 50-year-old male who presents to the emergency department with slurred speech. Patient's is at bedside and helps provide history. Patient's states that patient has intermittent slurred speech for 2 weeks that began with difficulty swallowing. Last known normal speech was last night. Patient saw primary care provider for the difficulty swallowing who told patient to take allergy medications. Patient and patient's deny facial droop or focal weakness/numbness, Patient's states that patient has been foggy intermittently for the past 2 weeks and is slower to answer her questions. Patient states his father has history of stroke. - Related Data Home Medications Medication Instructions Recorded Confirmed lisinopriL [Zestril] 20 mg PO DAILY 10/25/18 12/21/19 Ergocalciferol [Vitamin D2 (1250 1,250 mcg PO SHULTZ 10/08/21 10/08/21 Mcg = 28879 Iu)] Ibuprofen [Motrin Ib] 600 mg PO Q8H PRN 10/08/21 10/08/21 glipiZIDE XL [Glucotrol Xl] 20 mg PO DAILY 10/08/21 10/08/21 metFORMIN HCL ER [Glucophage XR] 2,000 mg PO DAILY 10/08/21 10/08/21 Allergies Allergy/AdvReac Type Severity Reaction Status Date / Time No Known Allergies Allergy Verified 10/08/21 16:33 Review of Systems ROS Statement: Those systems with pertinent positive or pertinent negative responses have been documented in the HPI. ROS Other: All systems not noted in ROS Statement are negative. Past Medical History Past Medical History: Diabetes Mellitus Additional Past Medical History / Comment(s): c/o pain in joints, Lt shoulder - has pain in Rt knee currently. History of Any Multi-Drug Resistant Organisms: None Reported Past Surgical History: Orthopedic Surgery Additional Past Surgical History / Comment(s): BILATERAL KNEE, LEFT ROTATOR CUFF, RIGHT ARM Past Anesthesia/Blood Transfusion Reactions: No Reported Reaction Past Psychological History: Depression Smoking Status: Never smoker Past Alcohol Use History: None Reported Past Drug Use History: None Reported - Past Family History Father Family Medical History: Deep Vein Thrombosis (DVT) General Exam Limitations: no limitations General appearance: alert, in no apparent distress Eye exam: Present: normal appearance, PERRL, EOMI. Absent: scleral icterus, conjunctival injection, periorbital swelling ENT exam: Present: normal oropharynx Neck exam: Present: normal inspection. Absent: tenderness Respiratory exam: Present: normal lung sounds bilaterally. Absent: respiratory distress, wheezes, rales, rhonchi, stridor Cardiovascular Exam: Present: regular rate, normal rhythm, normal heart sounds. Absent: systolic murmur, diastolic murmur, rubs, gallop, clicks GI/Abdominal exam: Present: soft, normal bowel sounds. Absent: distended, tenderness, guarding, rebound, rigid Back exam: Present: normal inspection Neurological exam: Present: alert, oriented X3, CN II-XII intact Expanded Patient oriented to: Present: person, place, time Cranial nerves: EOM's Intact: Normal, Tongue Deviation: Normal, Nystagmus: Normal Cerebellar function: Finger to Nose: Normal, Heel to [place]: Normal Upper motor neuron: Pronator Drift: Normal Sensory exam: Upper Extremity Light Touch: Normal, Lower Extremity Light Touch: Normal Motor strength exam: RUE: 5, LUE: 5, RLE: 5, LLE: 5 Psychiatric exam: Present: normal affect, normal mood Skin exam: Present: warm, dry, intact, normal color. Absent: rash Course Vital Signs 10/08/21 10/08/21 15:15 15:59 Temperature 98.6 F 98.1 F Pulse Rate 89 87 Respiratory 18 14 Rate Blood Pressure 153/93 153/92 O2 Sat by Pulse 100 96 Oximetry EKG Findings - EKG Comments: EKG Findings:: EKG taken at 15:24. Sinus rhythm, possible left atrial enlargeme nt, borderline left axis deviation. Ventricular rate 89. [place] interval 168. QRS duration 100. QTC 379 Medical Decision Making - Medical Decision Making This is a 50-year-old male who presents with intermittent slurred speech 2 weeks. Thorough history and examination were performed. Patient has no focal neurological deficits. He is neurovascularly intact. Troponin is within normal limits. Other laboratory studies are unremarkable. CT of the brain without contrast and chest XR were obtained which are unremarkable. Case discussed with Dr. Tse. She will be admitted to his service with neurology consult for further evaluation and management. Results discussed with patient and patient's . They verbalize understanding and are agreeable with plan. Dr. Sosa is my attending. - Lab Data Result diagrams: 10/08/21 16:10 10/08/21 16:10 Lab Results 10/08/21 10/08/21 10/08/21 Range/Units 15:21 16:10 16:10 WBC 7.8 (3.8-10.6) k/uL RBC 5.71 (4.30-5.90) m/uL Hgb 16.4 (13.0-17.5) gm/dL Hct 47.0 (39.0-53.0) % MCV 82.4 (80.0-100.0) fL MCH 28.6 (25.0-35.0) pg MCHC 34.8 (31.0-37.0) g/dL RDW 13.1 (11.5-15.5) % Plt Count 242 (150-450) k/uL MPV 8.0 Neutrophils % 61 % Lymphocytes % 27 % Monocytes % 6 % Eosinophils % 3 % Basophils % 1 % Neutrophils # 4.8 (1.3-7.7) k/uL Lymphocytes # 2.1 (1.0-4.8) k/uL Monocytes # 0.4 (0-1.0) k/uL Eosinophils # 0.3 (0-0.7) k/uL Basophils # 0.1 (0-0.2) k/uL PT 10.4 (9.0-12.0) sec INR 0.9 (<1.2) APTT 22.9 (22.0-30.0) sec Sodium (137-145) mmol/L Potassium (3.5-5.1) mmol/L Chloride (98-107) mmol/L Carbon Dioxide (22-30) mmol/L Anion Gap mmol/L BUN (9-20) mg/dL Creatinine (0.66-1.25) mg/dL Est GFR (CKD-EPI)AfAm (>60 ml/min/1.73 sqM) Est GFR (CKD-EPI)NonAf (>60 ml/min/1.73 sqM) Glucose (74-99) mg/dL POC Glucose (mg/dL) 154 H (75-99) mg/dL POC Glu [employer] [facility] Calcium (8.4-10.2) mg/dL Total Bilirubin (0.2-1.3) mg/dL AST (17-59) U/L ALT (4-49) U/L Alkaline Phosphatase (38-126) U/L Troponin I (0.000-0.034) ng/mL Total Protein (6.3-8.2) g/dL Albumin (3.5-5.0) g/dL Urine Color Urine Appearance (Clear) Urine pH (5.0-8.0) Ur Specific [place] (1.001-1.035) Urine Protein (Negative) Urine Glucose (UA) (Negative) Urine Ketones (Negative) Urine Blood (Negative) Urine Nitrite (Negative) Urine Bilirubin (Negative) Urine Urobilinogen (<2.0) mg/dL Ur Leukocyte Esterase (Negative) 10/08/21 10/08/21 10/08/21 Range/Units 16:10 16:10 16:10 WBC (3.8-10.6) k/uL RBC (4.30-5.90) m/uL Hgb (13.0-17.5) gm/dL Hct (39.0-53.0) % MCV (80.0-100.0) fL MCH (25.0-35.0) pg MCHC (31.0-37.0) g/dL RDW (11.5-15.5) % Plt Count (150-450) k/uL MPV Neutrophils % % Lymphocytes % % Monocytes % % Eosinophils % % Basophils % % Neutrophils # (1.3-7.7) k/uL Lymphocytes # (1.0-4.8) k/uL Monocytes # (0-1.0) k/uL Eosinophils # (0-0.7) k/uL Basophils # (0-0.2) k/uL PT (9.0-12.0) sec INR (<1.2) APTT (22.0-30.0) sec Sodium 136 L (137-145) mmol/L Potassium 4.2 (3.5-5.1) mmol/L Chloride 106 (98-107) mmol/L Carbon Dioxide 23 (22-30) mmol/L Anion Gap 7 mmol/L BUN 15 (9-20) mg/dL Creatinine 0.85 (0.66-1.25) mg/dL Est GFR (CKD-EPI)AfAm >90 (>60 ml/min/1.73 sqM) Est GFR (CKD-EPI)NonAf >90 (>60 ml/min/1.73 sqM) Glucose 142 H (74-99) mg/dL POC Glucose (mg/dL) (75-99) mg/dL POC Glu [employer] Trainer ID Calcium 9.3 (8.4-10.2) mg/dL Total Bilirubin 0.4 (0.2-1.3) mg/dL AST 25 (17-59) U/L ALT 28 (4-49) U/L Alkaline Phosphatase 74 (38-126) U/L Troponin I <0.012 (0.000-0.034) ng/mL Total Protein 7.2 (6.3-8.2) g/dL Albumin 4.1 (3.5-5.0) g/dL Urine Color Light Yellow Urine Appearance Clear (Clear) Urine pH 5.0 (5.0-8.0) Ur Specific [place] 1.009 (1.001-1.035) Urine Protein Negative (Negative) Urine Glucose (UA) Negative (Negative) Urine Ketones Negative (Negative) Urine Blood Negative (Negative) Urine Nitrite Negative (Negative) Urine Bilirubin Negative (Negative) Urine Urobilinogen <2.0 (<2.0) mg/dL Ur Leukocyte Esterase Negative (Negative) 10/08/21 Range/Units 16:39 WBC (3.8-10.6) k/uL RBC (4.30-5.90) m/uL Hgb (13.0-17.5) gm/dL Hct (39.0-53.0) % MCV (80.0-100.0) fL MCH (25.0-35.0) pg MCHC (31.0-37.0) g/dL RDW (11.5-15.5) % Plt Count (150-450) k/uL MPV Neutrophils % % Lymphocytes % % Monocytes % % Eosinophils % % Basophils % % Neutrophils # (1.3-7.7) k/uL Lymphocytes # (1.0-4.8) k/uL Monocytes # (0-1.0) k/uL Eosinophils # (0-0.7) k/uL Basophils # (0-0.2) k/uL PT (9.0-12.0) sec INR (<1.2) APTT (22.0-30.0) sec Sodium (137-145) mmol/L Potassium (3.5-5.1) mmol/L Chloride (98-107) mmol/L Carbon Dioxide (22-30) mmol/L Anion Gap mmol/L BUN (9-20) mg/dL Creatinine (0.66-1.25) mg/dL Est GFR (CKD-EPI)AfAm (>60 ml/min/1.73 sqM) Est GFR (CKD-EPI)NonAf (>60 ml/min/1.73 sqM) Glucose (74-99) mg/dL POC Glucose (mg/dL) 126 H (75-99) mg/dL POC Glu [employer] Sales Trainer ID [place] [facility] Calcium (8.4-10.2) mg/dL Total Bilirubin (0.2-1.3) mg/dL AST (17-59) U/L ALT (4-49) U/L Alkaline Phosphatase (38-126) U/L Troponin I (0.000-0.034) ng/mL Total Protein (6.3-8.2) g/dL Albumin (3.5-5.0) g/dL Urine Color Urine Appearance (Clear) Urine pH (5.0-8.0) Ur Specific [place] (1.001-1.035) Urine Protein (Negative) Urine Glucose (UA) (Negative) Urine Ketones (Negative) Urine Blood (Negative) Urine Nitrite (Negative) Urine Bilirubin (Negative) Urine Urobilinogen (<2.0) mg/dL Ur Leukocyte Esterase (Negative) Disposition Clinical Impression: Slurred speech, Difficulty swallowing Disposition: ADMITTED IP TO THIS [facility] Condition: Fair Referrals: Brianna Guzman MD [Primary Care Provider] - 1-2 days Decision Time: 17:31
[2021-10-08 21:13] LABS: Glucose,Whole Blood 161 mg/dL (75-99)
[2021-10-08] MEDS ORDERED: lisinopriL 20 MG TAB PO STA (21:14)
[2021-10-08] MEDS ORDERED: ACETAMINOPHEN TAB 500 MG TAB PO PRN (22:14)
[2021-10-09 06:57] LABS: Glucose,Whole Blood 131 mg/dL (75-99)
[2021-10-09] MEDS: INSULIN ASPART (NovoLOG) 100 UNIT/ML VIAL SQ SCH ×4 (07:47→20:24)
[2021-10-09] MEDS: metFORMIN 500 MG TAB PO SCH (07:48)
[2021-10-09] MEDS: glipiZIDE 10 MG TAB PO SCH (07:48)
[2021-10-09] MEDS: lisinopriL 20 MG TAB PO SCH (07:48)
[2021-10-09 08:59] LABS: Basophils # (A) 0.03 X 10*3/uL (0.00-0.10); Basophils % (A) 0.4 %; Eosinophils % (A) 3.8 %; HCT 46.5 % (39.6-50.0); HGB 15.2 g/dL (13.0-17.0); Immature Grans, Automated 0.4 %; Lymphocytes # (A) 2.48 X 10*3/uL (0.90-5.00); Lymphocytes % (A) 31.4 %; MCH 27.1 pg (27.0-32.0); MCHC 32.7 g/dL (32.0-37.0); MCV 82.9 fL (80.0-97.0); Monocytes # (A) 0.74 X 10*3/uL (0.20-1.00); Monocytes % (A) 9.4 %; NRBC Per 100 WBC 0 /100 WBCS (0.0-0.0); Neutrophils # (A) 4.31 X 10*3/uL (1.80-7.70); Neutrophils % (A) 54.6 %; Platelet Count 236 X 10*3/uL (140-440); RBC 5.61 X 10*6/uL (4.40-5.60); WBC 7.89 X 10*3/uL (4.50-10.00)
[2021-10-09 09:17] LABS: Albumin 4.1 g/dL (3.8-4.9); Albumin/Globulin Ratio 1.71 (1.60-3.17); Blood Urea Nitrogen 13.5 mg/dL (9.0-27.0); Calcium 9.4 mg/dL (8.7-10.3); Globulin 2.4 g/dL (1.6-3.3); Non-African American GFR(CKD) 99.2 (60.0-200.0); Potassium 4.1 mmol/L (3.5-5.5); Total Bilirubin 0.3 mg/dL (0.30-1.20); Total Protein 6.5 g/dL (6.2-8.2)
--- NOTE | 2021-10-09 10:01 | P.HPIM ---
History of Present Illness H&P Date: 10/09/21 Chief Complaint: Slurred speech This is a 50-year-old male patient of Dr. Guzman who presented with concerns of slurred speech and difficulty swallowing intermittently over the past 2 weeks. Patient reports that his was noticed that he was having trouble speaking and prompted him to the ER for further evaluation. Patient denies any other neurological symptoms. Patient denies uneven gait or weakness. No reports of facial droop. Patient does have a past medical history of diabetes mellitus and depression. Patient denies any recent illness. Patient denies alcohol or drug us. Head CT completed showing no acute intracranial abnormality or gross space-occupying lesion. Chest x-ray completed showing no acute process. Lab work unremarkable. At this time patient will be admitted neurology services have been consulted. 2-D echo carotid Doppler have been ordered. Hemoglobin A1c repeat labs ordered. This time patient denies chest pain or shortness breath. Patient denies nausea vomiting or diarrhea. Patient denies any urinary burning or frequency. No neurological deficits noted Review of Systems Please refer to HPI otherwise unremarkable Past Medical History Past Medical History: Diabetes Mellitus Additional Past Medical History / Comment(s): c/o pain in joints, Lt shoulder - has pain in Rt knee currently. History of Any Multi-Drug Resistant Organisms: None Reported Past Surgical History: Orthopedic Surgery Additional Past Surgical History / Comment(s): BILATERAL KNEE, LEFT ROTATOR CUFF, RIGHT ARM Past Anesthesia/Blood Transfusion Reactions: No Reported Reaction Past Psychological History: Depression Additional Psychological History / Comment(s): denies Smoking Status: Never smoker Past Alcohol Use History: None Reported Past Drug Use History: None Reported - Past Family History Father Family Medical History: Deep Vein Thrombosis (DVT) Medications and Allergies Home Medications Medication Instructions Recorded Confirmed Type lisinopriL [Zestril] 20 mg PO DAILY 10/25/18 10/08/21 History Ergocalciferol [Vitamin D2 (1250 1,250 mcg PO SHULTZ 10/08/21 10/08/21 History Mcg = 30292 Iu)] Ibuprofen [Motrin Ib] 600 mg PO Q8H PRN 10/08/21 10/08/21 History glipiZIDE XL [Glucotrol Xl] 20 mg PO DAILY 10/08/21 10/08/21 History metFORMIN HCL ER [Glucophage XR] 2,000 mg PO DAILY 10/08/21 10/08/21 History Allergies Allergy/AdvReac Type Severity Reaction Status Date / Time No Known Allergies Allergy Verified 10/08/21 16:33 Physical Exam Vitals: Vital Signs Temp Pulse Pulse Resp BP BP Pulse Ox 10/09/21 08:00 98.5 F 68 17 134/75 98 10/09/21 07:45 68 17 10/09/21 01:49 98.2 F 77 18 162/85 97 10/08/21 20:00 98.6 F 85 17 158/84 96 10/08/21 18:08 98.9 F 91 14 162/103 93 L 10/08/21 15:59 98.1 F 87 14 153/92 96 10/08/21 15:15 98.6 F 89 18 153/93 100 Intake and Output 10/08/21 10/09/21 10/09/21 22:59 06:59 14:59 Intake Total 360 Balance 360 Intake: Oral 360 Other: # Voids 3 Weight 117.934 kg Head normocephalic Neck supple Lungs clear to auscultation bilaterally no wheezing or crackles Heart regular rate and rhythm S1-S2, no rub or gallop Abdomen is soft nontender nondistended positive bowel sounds no hepatosplenomegaly Extremities no edema Neuro alert and orientated to 3 Results CBC & Chem 7: 10/09/21 04:12 10/09/21 04:12 Labs: Abnormal Lab Results - Last 24 Hours (Table) 10/08/21 10/08/21 10/08/21 Range/Units 15:21 16:10 16:39 RBC (4.40-5.60) X 10*6/uL Sodium 136 L (137-145) mmol/L Glucose 142 H (74-99) mg/dL POC Glucose (mg/dL) 154 H 126 H (75-99) mg/dL 10/08/21 10/09/21 10/09/21 Range/Units 21:11 04:12 04:12 RBC 5.61 H (4.40-5.60) X 10*6/uL Sodium (137-145) mmol/L Glucose 128 H (74-99) mg/dL POC Glucose (mg/dL) 161 H (75-99) mg/dL 10/09/21 Range/Units 06:56 RBC (4.40-5.60) X 10*6/uL Sodium (137-145) mmol/L Glucose (74-99) mg/dL POC Glucose (mg/dL) 131 H (75-99) mg/dL Thrombosis Risk Factor Assmnt - Choose All That Apply Any of the Below Risk Factors Present?: No Assessment and Plan Assessment: 1. Episode of slurred speech and difficulty swallowing. Neurology services have been consulted 2. Diabetes mellitus type 2. Patient is maintained on oral medication will order hemoglobin A1c 3. History of depression DVT prophylaxis Lovenox. GI prophylaxis Protonix Neurology services consulted 2-D echo carotid Doppler ordered hemoglobin A1c ordered Repeat labs ordered Time with Patient: Greater than 30 (Greater than 60% of the total time spent in counseling and coordination of care)
[2021-10-09 11:13] LABS: Glucose,Whole Blood 102 mg/dL (75-99)
--- NOTE | 2021-10-09 11:31 | ECHOF ---
Referral Reason:possible TIA MEASUREMENTS -------- HEIGHT: 188.0 cm WEIGHT: 117.9 kg BP: 134/75 RVIDd: 3.5 cm (< 3.3) IVSd: 1.2 cm (0.6 - 1.1) LVIDd: 4.4 cm (3.9 - 5.3) LVPWd: 1.2 cm (0.6 - 1.1) IVSs: 1.8 cm LVIDs: 2.9 cm LVPWs: 1.7 cm LA Diam: 3.7 cm (2.7 - 3.8) LAESV Index (A-L): 17.47 ml/m Ao Diam: 3.5 cm (2.0 - 3.7) AV Cusp: 2.4 cm (1.5 - 2.6) MV EXCURSION: 12.690 mm (> 18.000) MV EF SLOPE: 52 mm/s (70 - 150) EPSS: 0.3 cm MV E River: 0.56 m/s MV DecT: 222 ms MV A River: 0.82 m/s MV E/A Ratio: 0.68 FINDINGS -------- Sinus rhythm. Suboptimal image quality - poor subcostal views. The left ventricular size is normal. There is borderline concentric left ventricular hypertrophy. Overall left ventricular systolic function is normal with, an EF between 60 - 65 %. The right ventricle is mildly enlarged. Normal LA size by volume 22+/-6 ml/m2. The right atrium is normal in size. The aortic valve is trileaflet, and appears structurally normal. No aortic stenosis or regurgitation. The mitral valve is normal. The tricuspid valve appears structurally normal. Unable to estimate RVSP due to inadequate TR jet s pectral doppler profile. Trace/mild (physiologic) pulmonic regurgitation. The aortic root size is normal. IVC Not well visulized. There is no pericardial effusion. CONCLUSIONS -------- 1. The left ventricular size is normal. 2. There is borderline concentric left ventricular hypertrophy. 3. Overall left ventricular systolic function is normal with, an EF between 60 - 65 %. 4. The right ventricle is mildly enlarged. 5. consider GONZALO if clinically indicated 6. There is no pericardial effusion. [employer]: Brittanie Dixon RDCS
--- NOTE | 2021-10-09 11:47 | US ---
EXAMINATION TYPE: US carotid duplex BILAT DATE OF EXAM: 10/09/2021 COMPARISON: NONE CLINICAL HISTORY: possible TIA. TIA EXAM MEASUREMENTS: RIGHT: Peak Systolic Velocity (PSV) cm/sec ----- Right CCA: 76.9 ----- Right ICA: 84.2 ----- Right ECA: 155.5 ICA/CCA ratio: 1.1 RIGHT: End Diastole cm/sec ----- Right CCA: 20.2 ----- Right ICA: 28.9 ----- Right ECA: 19.5 LEFT: Peak Systolic Velocity (PSV) cm/sec ----- Left CCA: 72.5 ----- Left ICA: 100.0 ----- Left ECA: 139.8 ICA/CCA ratio: 1.4 LEFT: End Diastole cm/sec ----- Left CCA: 20.8 ----- Left ICA: 27.3 ----- Left ECA: 27.4 VERTEBRALS (direction of flow): Right Vertebral: Antegrade Left Vertebral: Antegrade Rhythm: Normal No significant focal plaque on grayscale images. IMPRESSION: No hemodynamically significant stenosis in either internal carotid artery. Criteria for Assigning % of Stenosis / Diameter reduction (Estimation based on the indirect measurements of the internal carotid artery velocities (ICA PSV). 1. Normal (no stenosis)=ICA PSV < 125 cm/s: ratio < 2.0: ICA EDV<40 cm/s. 2. Less than 50% stenosis=ICA PSV < 125 cm/s: ratio < 2.0: ICA EDV<40 cm/s. 3. 50 to 69% stenosis=ICA PSV of 125 to 230 cm/s: ration 2.0 ? 4.0: ICA EDV 40-100 cm/s. 4. Greater than 70% stenosis to near occlusion= ICA PSV > 230 cm/s: ratio > 4.0: ICA EDV > 100 cm/s. 5. Near occlusion= ICA PSV velocities may be low or undetectable: variable ratio and ICA EDV. 6. Total occlusion=unable to detect flow.
[2021-10-09] MEDS ORDERED: ASPIRIN 81 MG PO STA (12:10)
--- NOTE | 2021-10-09 16:12 | P.CNNES ---
History of Present Illness Consult date: 10/09/21 Requesting physician: Sonam Matthews Reason for Consult: Slurred speech History of Present Illness: Patient is a 50-year-old left-handed male came to the hospital yesterday at 3:12 PM for strokelike symptoms. Patient's was also present, who also provided the history. Patient apparently has been having generalized weakness, and dysphagia for last 2 weeks. Denies any focal weakness, just the whole body. He describes dysphagia as problems with swallowing his saliva, and food has to be taken with the drink. He saw his primary physician, who felt it was ALLERGIES and give some ALLERGY pill. His symptoms got worse in the last 4-5 days, as he has been "acting off", slurring words off and on, oblivious to what was going on around him. His balance has been slightly off for the last 4-5 days. He has had some headache for last one beat particularly if he bends over and looks at the corner. Denies any loss of vision or double vision, numbness or tingling. Because of persistent symptoms, patient's insisted him to come to the ER. Vital signs on arrival blood pressure 153/93, pulse rate 89, temperature 98.6. Computed tomography scan of head showed no acute intracranial abnormality or gross space occupying lesion. I personally reviewed computed tomography scan of the head, which also looks normal, although they may be some hypodensity in the right-sided midbrain region, although it is questionable. Chest x-ray showed no acute process. CBC, CMP normal. Patient's last hemoglobin A1c 8.3 on 11/16/2016. Patient's last LDL 121 on 09/08/2016. Patient has type 2 diabetes for 12-13 years. He has hypertension, and is compliant with his medications. Patient does take lisinopril 20 mg, metformin 2000 mg gram daily, glipizide and vitamin D. Does not take antiplatelet medication like aspirin. Patient denies any tobacco or alcohol use. Review of Systems As mentioned above in HPI. All other 14 point of review systems reviewed and are unremarkable. Past Medical History Past Medical History: Diabetes Mellitus Additional Past Medical History / Comment(s): c/o pain in joints, Lt shoulder - has pain in Rt knee currently. History of Any Multi-Drug Resistant Organisms: None Reported Past Surgical History: Orthopedic Surgery Additional Past Surgical History / Comment(s): BILATERAL KNEE, LEFT ROTATOR CUFF, RIGHT ARM Past Anesthesia/Blood Transfusion Reactions: No Reported Reaction Past Psychological History: Depression Additional Psychological History / Comment(s): denies Smoking Status: Never smoker Past Alcohol Use History: None Reported Past Drug Use History: None Reported - Past Family History Father Family Medical History: Deep Vein Thrombosis (DVT) Medications and Allergies Home Medications Medication Instructions Recorded Confirmed Type lisinopriL [Zestril] 20 mg PO DAILY 10/25/18 10/08/21 History Ergocalciferol [Vitamin D2 (1250 1,250 mcg PO SHULTZ 10/08/21 10/08/21 History Mcg = 19051 Iu)] Ibuprofen [Motrin Ib] 600 mg PO Q8H PRN 10/08/21 10/08/21 History glipiZIDE XL [Glucotrol Xl] 20 mg PO DAILY 10/08/21 10/08/21 History metFORMIN HCL ER [Glucophage XR] 2,000 mg PO DAILY 10/08/21 10/08/21 History Allergies Allergy/AdvReac Type Severity Reaction Status Date / Time No Known Allergies Allergy Verified 10/08/21 16:33 Physical Examination - Vital Signs Vital Signs: Vital Signs Temp Pulse Pulse Resp BP BP Pulse Ox 10/09/21 08:00 98.5 F 68 17 134/75 98 10/09/21 07:45 68 17 10/09/21 01:49 98.2 F 77 18 162/85 97 10/08/21 20:00 98.6 F 85 17 158/84 96 10/08/21 18:08 98.9 F 91 14 162/103 93 L 10/08/21 15:59 98.1 F 87 14 153/92 96 10/08/21 15:15 98.6 F 89 18 153/93 100 Intake and Output 10/08/21 10/09/21 10/09/21 22:59 06:59 14:59 Intake Total 360 Balance 360 Intake: Oral 360 Other: # Voids 3 Weight 117.934 kg Patient is a middle aged male, in no acute distress. Patient is alert awake oriented to time place and person. Speech is mildly dysarthric and language functions are normal. He can name and repeat very well. Can't follow directions. Attention, concentration and fund of knowledge is adequate. On cranial nerve examination, pupils are equal, round and reacting to light, visual montano are full on confrontation, with no neglect on double simultaneous stimulation. His extraocular muscles are intact with no nystagmus. Face is symmetric, although appears slight left droop (although difficult to assess because has no dentures in the upper jaw at this time, per patient's , it is at baseline), tongue protrudes to the midline. Palatal elevation and sensation normal, hearing and shoulder shrug normal, facial sensation normal. Shoulder sh rug normal. On muscle strength testing, there is mild left pronation, no drift. The strength is normal in arms and legs distally and proximally. He does have issues with the left rotator cuff tear in the past. Deep tendon reflexes are 1 at the biceps, trace at the brachioradialis, 2 in the lower limbs and plantars downgoing. Sensory to touch is equal with no neglect. Cerebellar function revealed mild ataxia for [id number] testing on the left. Finger tapping is slightly decreased on the left. Tone and bulk of muscles normal. No ataxia for [id number] testing. Gait normal. Patient slightly lost balance to the left while checking Romberg. On general examination, there is no carotid bruit or murmur, S1-S2 audible. Abdomen is soft nontender. No organomegaly, bowel sounds present. Chest is clear. Peripheral pulses are present. No edema. Results - Laboratory Findings CBC and BMP: 10/09/21 04:12 10/09/21 04:12 Abnormal Lab Findings: Abnormal Labs 10/08/21 10/08/21 10/08/21 15:21 16:10 16:39 RBC Sodium 136 L Glucose 142 H POC Glucose (mg/dL) 154 H 126 H 10/08/21 10/09/21 10/09/21 21:11 04:12 04:12 RBC 5.61 H Sodium Glucose 128 H POC Glucose (mg/dL) 161 H 10/09/21 10/09/21 06:56 11:11 RBC Sodium Glucose POC Glucose (mg/dL) 131 H 102 H Assessment and Plan Assessment: * 50-year-old male admitted with 2 week history of generalized weakness and mild dysphagia, with four-day history of slurring speech. Examination revealed mild slurring and left arm ataxia. Rule out lacunar stroke. * Diabetes * Hypertension Plan: * MRI brain evaluate for acute stroke. MRA of the head rule out intracranial stenosis. * Start aspirin 325 mg daily. If the stroke is confirmed, would recommend DAP for 21 days and then switch to monotherapy with aspirin indefinitely. * 2-D echo showed normal left-ventricular size. Borderline concentric LVH, EF is normal 60-65%. Right ventricle is mildly enlarged. Consider GONZALO if clinically indicated. * We will check EKG. * Carotid Doppler showed no hemodynamically significant stenosis in either ICA. Antegrade flow in both vertebral arteries. * Fasting lipid panel, hemoglobin A1c * Telemetry monitoring. * Patient on heparin subcu for DVT prophylaxis. * Neurology will follow. Thank you for the consult.
[2021-10-09 16:59] LABS: Glucose,Whole Blood 206 mg/dL (75-99)
[2021-10-09 20:17] LABS: Glucose,Whole Blood 95 mg/dL (75-99)
[2021-10-10 06:57] LABS: Glucose,Whole Blood 143 mg/dL (75-99)
[2021-10-10] MEDS ORDERED: PANTOPRAZOLE 40 MG TABLET PO SCH (07:30)
[2021-10-10] MEDS ORDERED: ASPIRIN 325 MG TAB PO SCH (09:00)
[2021-10-10] MEDS ORDERED: ENOXAPARIN 40 MG/0.4 ML SYRINGE SQ SCH (09:00)
[2021-10-10] MEDS: glipiZIDE 10 MG TAB PO SCH (09:12)
[2021-10-10] MEDS: lisinopriL 20 MG TAB PO SCH (09:12)
[2021-10-10] MEDS: metFORMIN 500 MG TAB PO SCH (09:12)
[2021-10-10] MEDS: INSULIN ASPART (NovoLOG) 100 UNIT/ML VIAL SQ SCH ×4 (09:12→20:34)
[2021-10-10 09:16] VITALS: RESP 18
[2021-10-10 09:16] LABS: Basophils # (A) 0.04 X 10*3/uL (0.00-0.10); Basophils % (A) 0.3 %; Eosinophils # (A) 0.27 X 10*3/uL (0.04-0.35); Eosinophils % (A) 2.3 %; HCT 49.8 % (39.6-50.0); HGB 16.3 g/dL (13.0-17.0); Immature Grans, Automated 0.3 %; Lymphocytes # (A) 2.36 X 10*3/uL (0.90-5.00); MCH 27.3 pg (27.0-32.0); MCHC 32.7 g/dL (32.0-37.0); MCV 83.6 fL (80.0-97.0); Monocytes % (A) 8.5 %; NRBC Per 100 WBC 0 /100 WBCS (0.0-0.0); Neutrophils % (A) 68.6 %; Platelet Count 263 X 10*3/uL (140-440); RBC 5.96 X 10*6/uL (4.40-5.60); RDW 12.9 % (11.5-14.5); WBC 11.81 X 10*3/uL (4.50-10.00)
[2021-10-10 09:26] LABS: African American GFR (CKD) 100.1 (60.0-200.0); Albumin 4.3 g/dL (3.8-4.9); Albumin/Globulin Ratio 1.55 (1.60-3.17); Anion Gap 11.9 mmol/L (10.00-18.00); BUN/Creat Ratio 10.69 Ratio (12.00-20.00); Blood Urea Nitrogen 10.8 mg/dL (9.0-27.0); Calcium 9.5 mg/dL (8.7-10.3); Carbon Dioxide 25.4 mmol/L (20.0-27.5); Globulin 2.7 g/dL (1.6-3.3); Non-African American GFR(CKD) 86.3 (60.0-200.0); Potassium 4.4 mmol/L (3.5-5.5); Total Bilirubin 0.4 mg/dL (0.30-1.20)
--- NOTE | 2021-10-10 11:49 | P.DS ---
Providers Date of admission: 10/08/21 17:16 Expected date of discharge: 10/10/21 Attending physician: Dc Tse Consults: 10/08/21 17:22 Consult Physician Routine Consulting Provider: Rm Neal Consult Reason/Comments: slurred speech Do you want consulting provider notified?: Yes Primary care physician: Brianna Guzman Hospital Course: Discharge diagnosis 1. Episode of slurred speech and difficulty swallowing. Neurology services have been consulted 2. Diabetes mellitus type 2. Patient is maintained on oral medication will order hemoglobin A1c 3. History of depression Hospital course This is a 50-year-old male patient of Dr. Guzman who presented with concerns of slurred speech and difficulty swallowing intermittently over the past 2 weeks. Patient reports that his was noticed that he was having trouble speaking and prompted him to the ER for further evaluation. Patient denies any other neurological symptoms. Patient denies uneven gait or weakness. No reports of facial droop. Patient does have a past medical history of diabetes mellitus and depression. Patient denies any recent illness. Patient denies alcohol or drug us. Head CT completed showing no acute intracranial abnormality or gross space- occupying lesion. Chest x-ray completed showing no acute process. Lab work unremarkable. At this time patient will be admitted neurology services have been consulted. 2-D echo carotid Doppler have been ordered. Hemoglobin A1c repeat labs ordered. This time patient denies chest pain or shortness breath. Patient denies nausea vomiting or diarrhea. Patient denies any urinary burning or frequency. No neurological deficits noted On 10/10/2021 patient is alert and oriented 3. Patient expresses he is very eager to be discharged home carotid Doppler was completed showing no hemodynamically significant stenosis in either internal carotid artery. 2-D echo completed showing EF of 60-65%. Patient was evaluated by neurology services started on aspirin 325 daily MRI to be completed prior to discharge and clearance per neurology prior to discharge this was discussed with nursing staff. Patient has had no further episodes of neurological deficits. Patient's alert and oriented 3. Equal strength throughout all extremities Patient Condition at Discharge: Stable Plan - Discharge Summary Discharge Rx Participant: Yes New Discharge Prescriptions: New Aspirin 325 mg PO DAILY 30 Days #30 tab Continue lisinopriL [Zestril] 20 mg PO DAILY metFORMIN HCL ER [Glucophage XR] 2,000 mg PO DAILY glipiZIDE XL [Glucotrol XL] 20 mg PO DAILY Ibuprofen [Motrin Ib] 600 mg PO Q8H PRN PRN Reason: Pain Or Fever > 100.5 Ergocalciferol [Vitamin D2 (1250 Mcg = 08960 Iu)] 1,250 mcg PO SHULTZ Discharge Medication List lisinopriL [Zestril] 20 mg PO DAILY 10/25/18 [History] Ergocalciferol [Vitamin D2 (1250 Mcg = 64921 Iu)] 1,250 mcg PO SHULTZ 10/08/21 [History] Ibuprofen [Motrin Ib] 600 mg PO Q8H PRN 10/08/21 [History] glipiZIDE XL [Glucotrol XL] 20 mg PO DAILY 10/08/21 [History] metFORMIN HCL ER [Glucophage XR] 2,000 mg PO DAILY 10/08/21 [History] Aspirin 325 mg PO DAILY 30 Days #30 tab 10/10/21 [Rx] Follow up Appointment(s)/Referral(s): Brianna Guzman MD [Primary Care Provider] - 1-2 days Activity/Diet/Wound Care/Special Instructions: Pt needs referral for MBS through speech therapy outpatient if he is discharged prior to 10/12/21. See Speech therapy swallow eval note for details.
[2021-10-10 11:56] LABS: Glucose,Whole Blood 441 mg/dL (75-99)
--- NOTE | 2021-10-10 14:18 | MR ---
EXAMINATION TYPE: MR angio head wo con DATE OF EXAM: 10/10/2021 COMPARISON: MR brain same day. HISTORY: Slurred speech, evaluate for CVA, dysphagia and general weakness x 3 weeks. TECHNIQUE: Time of flight images focusing on the She[place] of [place] were performed without contrast. FINDINGS: Vertebral arteries: The vertebral arteries are patent. The slightly left dominant vertebral artery. Basilar artery: The basilar artery is intact. The basilar artery bifurcation is normal. Internal Carotid arteries: The cervical, petrous, cavernous and supraclinoid segments are normal. RILEY: Patent with no evidence of aneurysm. ACOM: Present without evidence of aneurysm. MCA: Patent with no evidence of aneurysm. STAMP PAD MAKER: Patent with no evidence of aneurysm. PCOM: Hypoplastic bilaterally. IMPRESSION: No evidence of aneurysm or significant stenosis.
--- NOTE | 2021-10-10 14:18 | MR ---
EXAMINATION TYPE: MR brain wo/w con DATE OF EXAM: 10/10/2021 COMPARISON: CT angiogram same day HISTORY: Slurred speech, evaluate for CVA, dysphagia and general weakness x 3 weeks. TECHNIQUE: Multiplanar, multisequence images of the brain and brainstem is performed without and with IV contras t, utilizing 10 mL intravenous Gadavist . FINDINGS: There is masslike area within the hakeem which extends the hakeem and into the left cerebellar peduncle m easures roughly 45 x 21 x 34 mm and demonstrates high FLAIR/T2 signal. There are areas of lower T1/hi gh T2 signal centrally without enhancement suggesting necrosis. No evidence of restricted Diffusion w eighted images demonstrate no evidence of a recent infarct or other diffusion abnormality. There is no extra-axial fluid collection or significant white matter signal abnormality. The ventricular syst em and cisternal spaces are normal in size and appearance. The brain volume is age appropriate. High T2 signal foci scattered throughout the brain. The remainder of the midline structures demonstrate normal morphology. The craniocervical junction a ppears within normal limits. The dural venous sinuses appear patent. The visualized sinuses are shira r and the globes are intact. IMPRESSION: 1. 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 2. Nonspecific white matter changes likely secondary to chronic small vessel ischemic disease.
--- NOTE | 2021-10-10 15:44 | P.PN ---
Subjective Progress Note Date: 10/10/21 This is a 50-year-old male patient of Dr. Guzman who presented with concerns of slurred speech and difficulty swallowing intermittently over the past 2 weeks. Patient reports that his was noticed that he was having trouble speaking and prompted him to the ER for further evaluation. Patient denies any other neurological symptoms. Patient denies uneven gait or weakness. No reports of facial droop. Patient does have a past medical history of diabetes mellitus and depression. Patient denies any recent illness. Patient denies alcohol or drug us. Head CT completed showing no acute intracranial abnormality or gross space- occupying lesion. Chest x-ray completed showing no acute process. Lab work unremarkable. At this time patient will be admitted neurology services have been consulted. 2-D echo carotid Doppler have been ordered. Hemoglobin A1c repeat labs ordered. This time patient denies chest pain or shortness breath. Patient denies nausea vomiting or diarrhea. Patient denies any urinary burning or frequency. No neurological deficits noted On 10/10/2021 patient is alert and oriented 3. Patient expresses he is very eager to be discharged home carotid Doppler was completed showing no hemodynamically significant stenosis in either internal carotid artery. 2-D echo completed showing EF of 60-65%. Patient was evaluated by neurology services started on aspirin 325 daily MRI to be completed prior to discharge and clearance per neurology prior to discharge this was discussed with nursing staff. Patient has had no further episodes of neurological deficits. Patient's alert and oriented 3. Equal strength throughout all extremities. On 10/10/2021 patient underwent an MRI of the brain with contrast that revealed evidence of a masslike area within the hakeem which extends into the left cerebellar peduncle and measures 471261 mm, suspicious for a glioma until pr oven otherwise the radiology, case was discussed was Dr. Lazar neurologist over the phone, and he is recommending transferring patient to a tertiary care facility, Dr. Lazar spoke with Dr. Rangel neurosurgeon at [facility] and he indicated that he would accept the patient transferred to [facility]. network contract manager was contacted and she is initiating transfer procedure. Objective - Vital Signs Vital signs: Vital Signs Temp 98.4 F 10/10/21 08:00 Pulse 74 10/10/21 08:00 Resp 18 10/10/21 08:00 BP 130/81 10/10/21 08:00 Pulse Ox 95 10/10/21 08:00 Intake & Output 10/09/21 10/10/21 10/10/21 18:59 06:59 18:59 Intake Total 360 Balance 360 Intake: Oral 360 Other: # Voids 9 3 - Exam Head normocephalic Neck supple Lungs clear to auscultation bilaterally no wheezing or crackles Heart regular rate and rhythm S1-S2, no rub or gallop Abdomen is soft nontender nondistended positive bowel sounds no hepatosplenomegaly Extremities no edema Neuro alert and orientated to 3 - Labs CBC & Chem 7: 10/10/21 03:54 10/10/21 03:54 Labs: Abnormal Lab Results - Last 24 Hours (Table) 10/09/21 10/09/21 10/10/21 Range/Units 04:12 16:58 03:54 WBC 11.81 H (4.50-10.00) X 10*3/uL RBC 5.96 H (4.40-5.60) X 10*6/uL Neutrophils # 8.10 H (1.80-7.70) X 10*3/uL BUN/Creatinine Ratio (12.00-20.00) Ratio Glucose (70-110) mg/dL POC Glucose (mg/dL) 206 H (75-99) mg/dL Hemoglobin A1c 8.7 H (0.0-6.0) % Albumin/Globulin Ratio (1.60-3.17) g/dL 10/10/21 10/10/21 10/10/21 Range/Units 03:54 06:55 11:54 WBC (4.50-10.00) X 10*3/uL RBC (4.40-5.60) X 10*6/uL Neutrophils # (1.80-7.70) X 10*3/uL BUN/Creatinine Ratio 10.69 L (12.00-20.00) Ratio Glucose 141 H (70-110) mg/dL POC Glucose (mg/dL) 143 H 441 H (75-99) mg/dL Hemoglobin A1c (0.0-6.0) % Albumin/Globulin Ratio 1.55 L (1.60-3.17) g/dL Assessment and Plan Assessment: 1. Episode of slurred speech and difficulty swallowing. Neurology services have been consulted 2. Diabetes mellitus type 2. Patient is maintained on oral medication will order hemoglobin A1c 3. History of depression DVT prophylaxis Lovenox. GI prophylaxis Protonix Neurology services consulted 2-D echo carotid Doppler ordered hemoglobin A1c ordered Repeat labs ordered
--- NOTE | 2021-10-10 16:24 | P.PN ---
Progress Note - Text Progress Note Date: 10/10/21 On 10/10/2021 4:20 PM Patient Isaiah Salgado, 50-year-old male presenting with slurred speech and evidence of ataxia MRI of the brain with contrast revealed evidence of masslike area in the hakeem extending to the left cerebellar peduncle most consistent with glioma Dr. Lazar neurologist advised to transfer patient, he suggested to transfer him to [facility]. I attempted transfer to [facility], and spoke with neurosurgeon information technology internship doctor Lupe Narayan, who declined the transfer and stated that [facility] does not have the equipment to deal with patient condition, he is suggested to transfer patient to [facility]. I called [facility] transfer line and spoke with Toyin, I faxed patient's face sheet. I am waiting a phone call from an accepting physician for possible transfer to [facility] Clinically patient is stable, he denies any symptoms at this time.
[2021-10-10 16:44] LABS: Glucose,Whole Blood 134 mg/dL (75-99)
[2021-10-10 19:00] VITALS: BP 136/74; PULSE 98; TEMP 98.7
[2021-10-10 20:26] LABS: Glucose,Whole Blood 207 mg/dL (75-99)
[2021-10-11] MEDS ORDERED: ERGOCALCIFEROL 1,250 MCG (50,000 IU) CAPSULE PO SCH (09:00)
--- NOTE | 2021-10-11 09:19 | P.PN ---
Subjective Progress Note Date: 10/10/21 Patient was seen for a follow-up. Patient denies dizziness. No diplopia. He feels his speech has improved. Denies any new problems. Patient was sitting comfortably on the side of the bed. Patient's was also present. Objective - Vital Signs Vital signs: Vital Signs Temp 98.4 F 10/10/21 08:00 Pulse 74 10/10/21 08:00 Resp 18 10/10/21 08:00 BP 130/81 10/10/21 08:00 Pulse Ox 95 10/10/21 08:00 Intake & Output 10/09/21 10/10/21 10/10/21 18:59 06:59 18:59 Intake Total 360 Balance 360 Intake: Oral 360 Other: # Voids 9 3 - Exam Patient's mental status is completely normal. He appears slightly inattentive. Speech is mild to moderately dysarthric with no aphasia. Cranial nerves pupils are round and reacting, visual montano are full. Extraocular muscles are intact. Face is symmetric and tongue protrudes the midline. On muscle strength testing there is no drift and the strength is normal in arms and legs. Patient has ataxia for [id number] as well as [id number] testing bilaterally, which appears to be worse as compared to yesterday. Sensations are equal. No neglect. Patient's balance appears to be slightly worse. He cannot walk tandem. Romberg was slightly positive. - Labs CBC & Chem 7: 10/10/21 03:54 10/10/21 03:54 Labs: Abnormal Lab Results - Last 24 Hours (Table) 10/09/21 10/09/21 10/10/21 Range/Units 04:12 16:58 03:54 WBC 11.81 H (4.50-10.00) X 10*3/uL RBC 5.96 H (4.40-5.60) X 10*6/uL Neutrophils # 8.10 H (1.80-7.70) X 10*3/uL BUN/Creatinine Ratio (12.00-20.00) Ratio Glucose (70-110) mg/dL POC Glucose (mg/dL) 206 H (75-99) mg/dL Hemoglobin A1c 8.7 H (0.0-6.0) % Albumin/Globulin Ratio (1.60-3.17) g/dL 10/10/21 10/10/21 10/10/21 Range/Units 03:54 06:55 11:54 WBC (4.50-10.00) X 10*3/uL RBC (4.40-5.60) X 10*6/uL Neutrophils # (1.80-7.70) X 10*3/uL BUN/Creatinine Ratio 10.69 L (12.00-20.00) Ratio Glucose 141 H (70-110) mg/dL POC Glucose (mg/dL) 143 H 441 H (75-99) mg/dL Hemoglobin A1c (0.0-6.0) % Albumin/Globulin Ratio 1.55 L (1.60-3.17) g/dL Assessment and Plan Assessment: * 50-year-old male admitted with 2 week history of generalized weakness and mild dysphagia, with four-day history of slurring speech. Examination revealed mild slurring and left arm ataxia. MRI of the brain revealed enhancing mass like lesion in the hakeem, rule out pontine glioma. Rule out brain stem encephalitis, although less likely. * Diabetes * Hypertension Plan: * MRI brain with and without contrast was performed today. It revealed pontine expansile mass, extending into the left cerebellar peduncle, most consistent with glioma until proven otherwise. Nonspecific white matter changes, likely secondary to chronic small vessel ischemic disease. I personally reviewed MRI of the brain, and agreed with the findings. * MRA of the head is normal with no stenosis or aneurysm. * 2-D echo showed normal left-ventricular size. Borderline concentric LVH, EF is normal 60-65%. Right ventricle is mildly enlarged. Consider GONZALO if clinically indicated. * Carotid Doppler showed no hemodynamically significant stenosis in either ICA. Antegrade flow in both vertebral arteries. * Fasting lipid panel pending, hemoglobin A1c 8.7. Need to optimize control of diabetes to target A1c <7.0. * Patient needs to be transferred to higher level of care for neurosurgical consultation. Discussed with primary physician Dr. Tse in detail. Also discussed case with Dr. Rangel, who agreed with transfer to [facility], but as per Dr. Tse note, they did not accept the patient and therefore he will be transferred to [facility].
[2021-10-11 20:41] LABS: Chol/HDL Ratio 5.37 Ratio; LDL Cholesterol,Calculated 125.8 mg/dL (0.0-131.0)
== END 2021-10-11 01:25 | disposition short-term general hospital (02) | DRG 55 ==
LOC: EC 15:12 → SUPCPDRO 15:12 → 4SSUR 17:16
PROVIDERS: ADMIT Internal Medicine; ATTEND Internal Medicine
DX: C71.7 Malignant neoplasm of brain stem (principal); E11.9 Type 2 diabetes mellitus without complications; F32.A Depression, unspecified; I10 Essential (primary) hypertension; R13.10 Dysphagia, unspecified; R47.81 Slurred speech; Z79.84 Long term (current) use of oral hypoglycemic drugs; Z79.899 Other long term (current) drug therapy; Z83.2 Family history of diseases of the blood and blood-forming organs and certain disorders involving the immune mechanism; R27.0 Ataxia, unspecified; Z98.890 Other specified postprocedural states; Z82.3 Family history of stroke
CPT/HCPCS: 36415; 70450; 70544; 70553; 71046; 80053; 80061; 81003; 83036; 84484; 85025; 85610; 85730; 87635; 93005; 93306; 93880; 99285